=== PATIENT | female | born 1985 | race Two or more races ===

== ENCOUNTER 2018-03-13 09:27 | Emergency (ER) | payer SELFPAY ==
[2018-03-13 09:48] VITALS: TEMP 98.1; BMI 42.5
[2018-03-13] MEDS ORDERED: SODIUM CHLORIDE 1,000 ML IV STA (10:47)
[2018-03-13] MEDS ORDERED: ONDANSETRON 4 MG/2 ML VIAL IVPUSH ONE (10:47)
[2018-03-13] MEDS ORDERED: PANTOPRAZOLE SODIUM 40 MG in SODIUM CHLORIDE 100 ML IVPB ONE (10:47)
[2018-03-13] MEDS ORDERED: PANTOPRAZOLE SODIUM 40 MG/100 ML BAG IVPB ONE (10:50)
[2018-03-13] MEDS ORDERED: ONDANSETRON 4 MG/2 ML VIAL ONE (10:50)
[2018-03-13 11:18] LABS: BASO % 0.2 % (0-2.0); EOS % 0.7 % (0-4.5); HEMATOCRIT 40.4 % (32.4-45.2); LYMPH % 17.5 % (8-40); MCH 28.7 pg (25.7-33.7); MCHC 34.6 g/dl (32.0-36.0); MEAN CELL VOLUME 82.9 fl (80-96); MEAN PLT VOLUME 7.9 fl (7.5-11.1); MONO % 8.8 % (3.8-10.2); NEUT % 72.8 % (42.8-82.8); PLATELET COUNT 337 K/MM3 (134-434); RBC 4.87 M/mm3 (3.60-5.2); RDW 13.6 % (11.6-15.6); WHITE BLOOD COUNT 8.3 K/mm3 (4.0-10.0)
[2018-03-13 11:53] LABS: ALBUMIN 3.8 g/dl (3.4-5.0); ALK PHOS 101 U/L (45-117); ANION GAP 10 MMOL/L (8-16); BILIRUBIN,TOTAL 0.8 mg/dL (0.2-1); BLOOD UREA NITROGEN 9 mg/dL (7-18); CALCIUM 8.7 mg/dL (8.5-10.1); CHLORIDE 104 mmol/L (98-107); CO2 24 mmol/L (21-32); CREATININE 0.7 mg/dL (0.55-1.3); GLUCOSE,RANDOM 83 mg/dL (74-106); LIPASE 55 U/L (73-393); POTASSIUM 3.6 mmol/L (3.5-5.1); SGOT/AST 17 U/L (15-37); SGPT/ALT 24 U/L (13-61); SODIUM 138 mmol/L (136-145)
--- NOTE | 2018-03-13 12:03 | PDOC ---
History of Present Illness - General Chief Complaint: Nausea/Vomiting Stated Complaint: VOMITING/DIARRHEA Time Seen by Provider: 03/13/18 10:40 History Source: Patient Exam Limitations: No Limitations - History of Present Illness Travel History: No Initial Comments: 03/13/18 10:49 32-year-old female with no past medical history presents to ED with complaints of upper abdominal cramping associated nausea vomiting and diarrhea. Patient states ate a bologna sandwich 2 nights ago and yesterday morning woke up with the pain. Patient denies recent sick contacts recent travel, recent illness. Patient states history of GERD. patient denies urinary complaints, bowel complaints prior to onset, or irregular menses. 03/13/18 12:03 Timing/Duration: reports: constant Quality: reports: mild, cramping Abdominal Pain Onset Location: reports: epigastric Pain Radiation: reports: no radiation Activities at Onset: reports: none Aggravating Factors: improves with: None Alleviating Factors: improves with: None Past History - Travel Traveled outside of the country in the last 30 days: No - Past Medical History Allergies/Adverse Reactions: Allergies Allergy/AdvReac Type Severity Reaction Status Date / Time No Known Allergies Allergy Verified 03/13/18 09:48 Home Medications: Ambulatory Orders Ondansetron HCl [Zofran] 4 mg PO TID PRN #12 tablet 03/13/18 Anemia: No Asthma: No Cancer: No Cardiac Disorders: No CVA: No COPD: No CHF: No Dementia: No Diabetes: No GI Disorders: Yes (GERD) Disorders: No HTN: No Hypercholesterolemia: No Liver Disease: Yes (hep c) Seizures: No Thyroid Disease: No - Surgical History Abdominal Surgery: Yes Appendectomy: No Cardiac Surgery: No Cholecystectomy: No Lung Surgery: No Neurologic Surgery: No Orthopedic Surgery: No - Immunization History Immunization Up to Date: Yes - Suicide/Smoking/Psychosocial Hx Smoking Status: No Smoking History: Never smoked Have you smoked in the past 12 months: No Number of Cigarettes Smoked Daily: 0 Information on smoking cessation initiated: No Hx Alcohol Use: No Drug/Substance Use Hx: No Substance Use Type: None Hx Substance Use Treatment: No Patient Lives Alone: No Abd/GI Specific PMHX - Complaint Specific PMHX GERD: Yes Hepatitis: Yes Review of Systems - Review of Systems Able to Perform ROS?: Yes Constitutional: No: Symptoms Reported HEENTM: No: Symptoms Reported Respiratory: No: Symptoms reported Cardiac (ROS): No: Symptoms Reported ABD/GI: Yes: Diarrhea, Nausea, Vomiting, Abdominal cramping : No: Symptoms Reported Musculoskeletal: No: Symptoms Reported Integumentary: No: Symptoms Reported Neurological: No: Symptoms reported *Physical Exam - Vital Signs Last Vital Signs Temp Pulse Resp BP Pulse Ox 98.1 F 79 18 107/69 100 03/13/18 09:45 03/13/18 09:45 03/13/18 09:45 03/13/18 09:45 03/13/18 09:45 - Physical Exam General Appearance: Yes: Nourished, Appropriately Dressed. No: Apparent Distress HEENT: positive: Pharynx Normal Neck: positive: Normal Thyroid, Supple Respiratory/Chest: positive: Lungs Clear, Normal Breath Sounds. negative: Respiratory Distress, Accessory Muscle Use Cardiovascular: positive: Regular Rhythm, Regular Rate. negative: Murmur Gastrointestinal/Abdominal: positive: Normal Bowel Sounds, Soft, Tenderness ( Epigastric and right epigastric area). negative: Distended, Hepatomegaly Musculoskeletal: negative: CVA Tenderness Extremity: negative: Pedal Edema Integumentary: positive: Normal Color, Warm, Moist Neurologic: positive: Motor Strength 5/5 (ambulatory) Moderate Sedation - Procedure Monitoring Vital Signs: Procedure Monitoring Vital Signs Temperature 98.1 F 03/13/18 09:45 Pulse Rate 79 03/13/18 09:45 Respiratory Rate 18 03/13/18 09:45 Blood Pressure 107/69 03/13/18 09:45 O2 Sat by Pulse Oximetry (%) 100 03/13/18 09:45 ED Treatment Course - LABORATORY CBC & Chemistry Diagram: 03/13/18 11:05 03/13/18 11:05 - ADDITIONAL ORDERS Additional order review: 03/13/18 11:05 RBC 4.87 MCV 82.9 MCHC 34.6 RDW 13.6 MPV 7.9 Neutrophils % 72.8 D Lymphocytes % 17.5 D Monocytes % 8.8 Eosinophils % 0.7 Basophils % 0.2 - Medications Given in the ED: ED Medications Discontinued Medications Generic Name Dose Route Start Last Admin Trade Name Freq PRN Reason Stop Dose Admin Pantoprazole Sodium 40 mg/ 100 mls @ 200 mls/hr 03/13/18 10:47 03/13/18 11:06 Sodium Chloride IVPB 03/13/18 11:16 200 mls/hr ONCE ONE Administration Sodium Chloride 1,000 mls @ 1,000 mls/hr 03/13/18 10:47 03/13/18 11:06 Normal Saline - IV 03/13/18 11:46 1,000 mls/hr ASDIR STA Administration Ondansetron HCl 4 mg 03/13/18 10:47 03/13/18 11:06 Zofran Injection IVPUSH 03/13/18 10:48 4 mg ONCE ONE Administration Medical Decision Making - Medical Decision Making 03/13/18 11:05 Chief complaint: Upper abdominal cramping associated nausea vomiting diarrhea. Patient denies fever bloody stool or urinary complaints Exam: Mild epigastric tenderness vital stable no active vomiting Plan: Labs, urine and urine , IV fluids , Protonix and antiemetics 03/13/18 12:07 Laboratory Tests 03/13/18 03/13/18 11:05 11:05 WBC 8.3 Hgb 14.0 Hct 40.4 Absolute Neuts (auto) 6.0 Neutrophils % 72.8 D Lymphocytes % 17.5 D Sodium 138 Potassium 3.6 Chloride 104 Carbon Dioxide 24 BUN 9 Creatinine 0.7 Random Glucose 83 Total Bilirubin 0.8 AST 17 ALT 24 Alkaline Phosphatase 101 Total Protein 8.0 Albumin 3.8 Lipase 55 L Awaiting urine. Patient states symptoms have resolved. 03/13/18 13:32 Laboratory Tests 03/13/18 12:00 Urine Ketones Trace H Urine Blood 1+ H Urine Nitrite Negative Urine Bilirubin Negative Urine Urobilinogen 4.0 e.u/dl H Ur Leukocyte Esterase Negative Urine WBC (Auto) 3 Urine RBC (Auto) 2 Patient having crackers and juice. We will discharge patient home with Zofran. 03/13/18 14:05 *DC/Admit/Observation/Transfer Diagnosis at time of Disposition: Nausea vomiting and diarrhea - Discharge Dispostion Disposition: HOME Condition at time of disposition: Improved - Prescriptions Prescriptions: Ondansetron HCl [Zofran] 4 mg PO TID PRN #12 tablet PRN Reason: Nausea And/Or Vomiting - Referrals Referrals: Francy Anderson FNP [Primary Care Provider] - - Patient Instructions Printed Discharge Instructions: DI for Vomiting -- Adult Additional Instructions: follow bland diet for the next few days and advance as tolerated. Please drink plenty of fluids and rest. Return to the emergency room if his symptoms worsen despite taking Zofran and following the above recommendations. - Post Discharge Activity
[2018-03-13 12:25] LABS: HCG,QUALITATIVE URINE Negative
[2018-03-13 12:38] LABS: URINE APPEARANCE SLCLOUDY; URINE BILIRUBIN NEGATIVE (<2.0 mg/dL); URINE COLOR AMBER; URINE GLUCOSE (UA) NEGATIVE (NEGATIVE); URINE KETONE TRACE (NEGATIVE); URINE LEUK ESTERASE NEGATIVE (NEGATIVE); URINE NITRITE NEGATIVE (NEGATIVE); URINE PROTEIN NEGATIVE (NEGATIVE); URINE UROBILINOGEN 4.0 E.U/dl mg/dL (0.2-1.0)
[2018-03-13 12:48] LABS: EPI CELLS MODERATE /HPF (FEW); URINE BACTERIA RARE /hpf (NONE SEEN); URINE MUCUS MODERATE
[2018-03-13 14:16] VITALS: BP 110/72; PULSE 69
== END 2018-03-13 14:25 | disposition home or self-care (01) ==
LOC: JER 09:27
PROC: 3E033GC Introduction of Other Therapeutic Substance into Peripheral Vein, Percutaneous Approach (ICD-10-PCS; principal; 2018-03-13)
PROC: 3E033GC Introduction of Other Therapeutic Substance into Peripheral Vein, Percutaneous Approach (ICD-10-PCS; 2018-03-13)
DX: R11.2 Nausea with vomiting, unspecified (principal); R19.7 Diarrhea, unspecified
CPT/HCPCS: 36415; 80053; 81003; 81015; 83690; 84703; 85025; 87086; 99283-25; J7030

== ENCOUNTER 2018-07-01 11:30 | Emergency (ER) | payer SELFPAY ==
[2018-07-01 11:44] VITALS: BP 122/69; PULSE 81; TEMP 97.8; BMI 46.5
--- NOTE | 2018-07-01 12:51 | PDOC ---
History of Present Illness - General Chief Complaint: Chest Pain Stated Complaint: S.O.B Time Seen by Provider: 07/01/18 12:51 - History of Present Illness Initial Comments: 07/01/18 13:13 33f with no pmh presents to the ed with 3 weeks of nasal congestion, worse when she goes outside. Describes difficulty passing air throught her nose and some chest pressure, difficulty taking a full breath. She denies coughing, sneezing, sore throat fever or chills. Has been wanting to see a ENT but didn't because she doesn't currently have an insurance. Past History - Past Medical History Allergies/Adverse Reactions: Allergies Allergy/AdvReac Type Severity Reaction Status Date / Time No Known Allergies Allergy Verified 07/01/18 11:41 Home Medications: Ambulatory Orders Ondansetron HCl [Zofran] 4 mg PO TID PRN #12 tablet 03/13/18 Fluticasone Propionate [Flonase Allergy Relief] 15.8 ml NS DAILY 30 Days #1 spray.susp 07/01/18 Oxymetazoline HCl [Afrin] 1 spray NS PRN PRN 3 Days #1 bandage 07/01/18 Anemia: No Asthma: No Cancer: No Cardiac Disorders: No CVA: No COPD: No CHF: No Dementia: No Diabetes: No GI Disorders: Yes (GERD) Disorders: No HTN: No Hypercholesterolemia: No Liver Disease: Yes (hep c) Seizures: No Thyroid Disease: No - Surgical History Abdominal Surgery: Yes Appendectomy: No Cardiac Surgery: No Cholecystectomy: No Lung Surgery: No Neurologic Surgery: No Orthopedic Surgery: No - Immunization History Immunization Up to Date: Yes - Suicide/Smoking/Psychosocial Hx Smoking Status: No Smoking History: Never smoked Have you smoked in the past 12 months: No Number of Cigarettes Smoked Daily: 0 Information on smoking cessation initiated: No Hx Alcohol Use: No Drug/Substance Use Hx: No Substance Use Type: None Hx Substance Use Treatment: No Cardiac Specific PMH - Complaint Specific PMHX GERD: Yes Pacemaker: No Review of Systems - Review of Systems Able to Perform ROS?: Yes Is the patient limited Bhutanese proficient: No Constitutional: No: Symptoms Reported HEENTM: Yes: See HPI Respiratory: Yes: See HPI Cardiac (ROS): No: Symptoms Reported ABD/GI: No: Symptoms Reported : No: Symptoms Reported Musculoskeletal: No: Symptoms Reported Integumentary: No: Symptoms Reported All Other Systems: Reviewed and Negative *Physical Exam - Vital Signs Last Vital Signs Temp Pulse Resp BP Pulse Ox 97.8 F 81 16 122/69 99 07/01/18 11:40 07/01/18 11:40 07/01/18 11:40 07/01/18 11:40 07/01/18 11:40 - Physical Exam General Appearance: Yes: Nourished, Appropriately Dressed. No: Apparent Distress HEENT: positive: EOMI, MOLLY. negative: Normal ENT Inspection (Swollen nasal sinuses and turbinates. ) Respiratory/Chest: positive: Lungs Clear, Normal Breath Sounds. negative: Chest Tender, Respiratory Distress Cardiovascular: positive: Regular Rhythm, Regular Rate, S1, S2 Vascular Pulses: Femoral (R): 0 Neurologic: positive: Fully Oriented, Alert, Normal Mood/Affect, Normal Response , Motor Strength 5/5 Medical Decision Making - Medical Decision Making 07/01/18 13:19 This is likely nasal congestion s/p seasonal allergies Low suspicion for pneumonia or caridac etiology. EKG: sinus rhythm with sinus arrhythmia. Patient is afebrile and has clear lung sounds with abnormal intranasal findings. Will send home with medicine clinic referal and afrin + flonase. *DC/Admit/Observation/Transfer Diagnosis at time of Disposition: Seasonal allergic rhinitis - Discharge Dispostion Disposition: HOME Condition at time of disposition: Improved Decision to Admit order: No - Prescriptions Prescriptions: Fluticasone Propionate [Flonase Allergy Relief] 15.8 ml NS DAILY 30 Days #1 spray.susp Oxymetazoline HCl [Afrin] 1 spray NS PRN PRN 3 Days #1 bandage PRN Reason: Nasal Congestion - Referrals Referrals: 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 3 days of Afrin and 1 month of Flonase. Come back to the emergency department for any new, worsening or concerning symptom. - Post Discharge Activity Forms/Work/School Notes: Back to Work
--- NOTE | 2018-07-01 17:18 | PDOC ---
Documentation entered by Leana Gotti SCRIBE, acting as scribe for Eh Reyna MD. Eh Reyna MD: This documentation has been prepared by the Ana María wallis Nirvannie, SCRIBE, under my direction and personally reviewed by me in its entirety. I confirm that the documentation accurately reflects all work, treatment, procedures, and medical decision making performed by me. Attending Attestation - Resident Resident Name: Raymond East - ED Attending Attestation I have performed the following: I have examined & evaluated the patient, The case was reviewed & discussed with the resident, I agree w/resident's findings & plan - HPI HPI: 07/01/18 13:21 CC: Nasal congestion HPI: The patient is a 33 year old female, with no significant past medical history, who presents to the emergency department with, nasal congestion with associated difficulty taking full inspirations secondary to congestion. She endorses going to an ENT, however, she was unable to get further treatment secondary to insurance issues. She denies any dyspnea upon exertion, chest pain, or palpitations. She denies recent fevers, chills, headache or dizziness. She denies recent nausea, vomit, diarrhea or constipation. She denies recent dysuria, frequency, urgency or hematuria. Allergies: NKA Past surgical history: None reported. - Physicial Exam PE: 07/01/18 13:21 Vitals: Triage vital signs reviewed General Appearance: No acute distress, well nourished, well developed Head: Atraumatic Eyes: Pupils equal reactive round, extraocular movement intact Ears: TM's normal bilaterally Nose: Nares patent bilaterally; + nasal congestion Throat: Posterior oropharynx without erythema, mucous membranes moist Neck: Supple; No nuchal rigidity Chest Wall: Nontender Cardiac: Regular rate and rhythm, no murmurs, no rubs, no gallops Lungs: Clear to auscultation bilateral, good air movement bilaterally Abdomen: Soft, nondistended, normal bowel sounds, nontender to palpation Genitourinary: Rectal: Exam deferred Extremities: Full range of motion to all extremities, no cyanosis, clubbing, or edema Skin: Warm and dry, no rashes or lesions, no rash, no petechiae Neuro: AOX3; Cranial Nerves 2-12 grossly intact, Strength intact to all extremities, Sensation intact to all extremities, gait normal Psych: Normal mood, normal affect - Medical Decision Making 07/01/18 13:22 33 year old female, with no significant past medical history, who presents to the emergency department with, nasal congestion with associated difficulty taking full inspirations secondary to congestion. Plan is: PCP follow up Prescription for Flonase
--- NOTE | 2018-07-02 14:59 | EKG ---
Test Reason : Blood Pressure : / mmHG Vent. Rate : 072 BPM Atrial Rate : 072 BPM P-R Int : 132 ms QRS Dur : 076 ms QT Int : 384 ms P-R-T Axes : 032 065 018 degrees QTc Int : 420 ms NORMAL SINUS RHYTHM WITH SINUS ARRHYTHMIA NORMAL ECG WHEN COMPARED WITH ECG OF 22-JUL-2012 13:44, NO SIGNIFICANT CHANGE WAS FOUND Confirmed by MD WALE, IAN ([id number]) on 07/02/2018 2:59:13 PM Referred By: Confirmed By:IAN ECHEVARRIA MD
== END 2018-07-01 13:35 | disposition home or self-care (01) ==
LOC: JER 11:30
DX: J30.2 Other seasonal allergic rhinitis (principal); K21.9 Gastro-esophageal reflux disease without esophagitis
CPT/HCPCS: 93005; 93010; 99281-25

== ENCOUNTER 2018-07-07 08:22 | Emergency (ER) | payer SELFPAY ==
[2018-07-07 08:29] VITALS: BP 112/79; PULSE 75; TEMP 97.7; BMI 45.1
--- NOTE | 2018-07-07 08:48 | PDOC ---
History of Present Illness - General Chief Complaint: Shortness of Breath Stated Complaint: SOB / CHEST PAIN Time Seen by Provider: 07/07/18 08:33 History Source: Patient - History of Present Illness Timing/Duration: reports: other Past History - Past Medical History Allergies/Adverse Reactions: Allergies Allergy/AdvReac Type Severity Reaction Status Date / Time No Known Allergies Allergy Verified 07/07/18 08:27 Home Medications: Ambulatory Orders Ondansetron HCl [Zofran] 4 mg PO TID PRN #12 tablet 03/13/18 Fluticasone Propionate [Flonase Allergy Relief] 15.8 ml NS DAILY 30 Days #1 spray.susp 07/01/18 Oxymetazoline HCl [Afrin] 1 spray NS PRN PRN 3 Days #1 bandage 07/01/18 Anemia: No Asthma: No Cancer: No Cardiac Disorders: No CVA: No COPD: No CHF: No Dementia: No Diabetes: No GI Disorders: Yes (GERD) Disorders: No HTN: No Hypercholesterolemia: No Liver Disease: Yes (hep c) Seizures: No Thyroid Disease: No - Surgical History Abdominal Surgery: Yes Appendectomy: No Cardiac Surgery: No Cholecystectomy: No Lung Surgery: No Neurologic Surgery: No Orthopedic Surgery: No - Immunization History Immunization Up to Date: Yes - Suicide/Smoking/Psychosocial Hx Smoking Status: No Smoking History: Never smoked Have you smoked in the past 12 months: No Number of Cigarettes Smoked Daily: 0 Hx Alcohol Use: No Drug/Substance Use Hx: No Substance Use Type: None Hx Substance Use Treatment: No Review of Systems - Review of Systems Constitutional: No: Chills, Fever HEENTM: Yes: Nose Congestion Respiratory: Yes: Shortness of Breath. No: Cough Cardiac (ROS): Yes: Chest Pain. No: Lightheadedness, Palpitations, Syncope ABD/GI: No: Nausea, Vomiting *Physical Exam - Vital Signs Last Vital Signs Temp Pulse Resp BP Pulse Ox 97.7 F 75 18 112/79 99 07/07/18 08:24 07/07/18 08:24 07/07/18 08:24 07/07/18 08:24 07/07/18 08:24 - Physical Exam General Appearance: Yes: Appropriately Dressed. No: Apparent Distress HEENT: positive: Normal ENT Inspection, Normal Voice, TMs Normal, Pharynx Normal. negative: Scleral Icterus (R), Scleral Icterus (L) Neck: positive: Supple Respiratory/Chest: positive: Lungs Clear, Normal Breath Sounds. negative: Respiratory Distress Cardiovascular: positive: Regular Rate, S1, S2 Gastrointestinal/Abdominal: positive: Soft. negative: Tender Integumentary: positive: Dry, Warm Neurologic: positive: Fully Oriented, Alert, Normal Mood/Affect ED Treatment Course - LABORATORY CBC & Chemistry Diagram: 07/07/18 08:52 07/07/18 08:52 - RADIOLOGY Radiology Studies Ordered: Category Date Time Status CHEST PA & LAT [RAD] Stat Radiology 07/07/18 08:47 Ordered Medical Decision Making - Medical Decision Making 07/07/18 08:48 33-year-old morbidly obese female, no past medical history, here with complaint of substernal, non-radiating chest pressure and difficulty taking a full breath , intermittently x several weeks. Also complaining of nasal congestion. No palpitations, cough, fever or chills. Patient was seen in ED last week for same and had normal EKG and diagnosed with possible seasonal allergies. Currently on Flonase, Afrin, but continues to complain of symptoms. Patient states she's also been seen by her PMD with no clear diagnosis. No obvious risk factors for DVT, PE and no significant family history See exam Persistent chest pressure/sob x several weeks of unclear etiology Normal EKG last week in ED Evaluated by PMD w/ no clear dx Stable here w/ clear chest/lungs Unlikely ACS, PERCs out, unlikely infxn, ?anxiety component -will get basic labs and CXR today 07/07/18 10:13 Labs and CXR negative. Pt remains stable here in NAD. Will dc to f/u with PMD. *DC/Admit/Observation/Transfer Diagnosis at time of Disposition: Chest pressure - Discharge Dispostion Disposition: HOME Condition at time of disposition: Good - Referrals - Patient Instructions Additional Instructions: The cause of your symptoms are unclear at this time as your labs and CXR were normal Please continue to follow with your PMD - Post Discharge Activity
[2018-07-07 09:31] LABS: BASO % 0.5 % (0-2.0); EOS % 0.8 % (0-4.5); HEMATOCRIT 38.6 % (32.4-45.2); HEMOGLOBIN 13.1 GM/dL (10.7-15.3); LYMPH % 28.7 % (8-40); MCHC 33.9 g/dl (32.0-36.0); MEAN CELL VOLUME 82.5 fl (80-96); MONO % 5.4 % (3.8-10.2); NEUT % 64.6 % (42.8-82.8); PLATELET COUNT 373 K/MM3 (134-434); RBC 4.68 M/mm3 (3.60-5.2); RDW 13.7 % (11.6-15.6); WHITE BLOOD COUNT 8.8 K/mm3 (4.0-10.0)
[2018-07-07 09:40] LABS: ALBUMIN 3.5 g/dl (3.4-5.0); ALK PHOS 84 U/L (45-117); ANION GAP 8 MMOL/L (8-16); BILIRUBIN,TOTAL 0.5 mg/dL (0.2-1); BLOOD UREA NITROGEN 11 mg/dL (7-18); CALCIUM 8.9 mg/dL (8.5-10.1); CHLORIDE 110 mmol/L (98-107); CO2 19 mmol/L (21-32); CREATININE 0.7 mg/dL (0.55-1.3); GLUCOSE,RANDOM 83 mg/dL (74-106); POTASSIUM 3.9 mmol/L (3.5-5.1); SGOT/AST 10 U/L (15-37); SGPT/ALT 16 U/L (13-61); SODIUM 137 mmol/L (136-145); TOT PROT 7.7 g/dl (6.4-8.2)
== END 2018-07-07 10:21 | disposition home or self-care (01) ==
LOC: JER 08:22 → JERFT 08:22
DX: R07.9 Chest pain, unspecified (principal); K21.9 Gastro-esophageal reflux disease without esophagitis; B18.2 Chronic viral hepatitis C
CPT/HCPCS: 36415; 71046-TC-FY; 80053; 82550; 84484; 84703; 85025; 99281-25

== ENCOUNTER 2018-12-20 16:03 | Emergency (ER) | payer OTHER ==
[2018-12-20 16:09] VITALS: BP 117/87; PULSE 92; TEMP 97.7; BMI 46.3
--- NOTE | 2018-12-20 16:09 | PDOC ---
Rapid Medical Evaluation Time Seen by Provider: 12/20/18 16:07 Medical Evaluation: Allergies Allergy/AdvReac Type Severity Reaction Status Date / Time No Known Allergies Allergy Verified 07/07/18 08:27 12/20/18 16:07 I have performed a brief in-person evaluation of this patient. The patient presents with a chief complaint of: 2-3 days of cold, cough with yellow phlegm, nasal congestion, no fever/chills, no CP The patient will proceed to the ED for further evaluation. Discharge Disposition - Diagnosis Upper respiratory infection - Referrals - Patient Instructions - Post Discharge Activity
[2018-12-20] MEDS ORDERED: ALBUTEROL SO4 2.5/IPRATROPIUM 0.5 INH SOL 3 ML VIAL.NEB. NEB ONE ×2 (16:42→16:43)
[2018-12-20] MEDS ORDERED: predniSONE 20 MG TABLET (UD) ONE (16:43)
[2018-12-20] MEDS ORDERED: predniSONE 20 MG TABLET (UD) PO ONE (16:43)
--- NOTE | 2018-12-20 16:49 | PDOC ---
History of Present Illness - General Chief Complaint: Respiratory Stated Complaint: COLD SYX Time Seen by Provider: 12/20/18 16:07 History Source: Patient Exam Limitations: No Limitations - History of Present Illness Initial Comments: 12/20/18 16:43 Patient came in with complaints of persistent moist cough, runny nose and congestion for the past 3 days. States is used [id number] medications at home remedies with minimal resolve. Is this a multiple visit Asthma Patient?: No Timing/Duration: reports: just prior to arrival Severity: reports: mild, moderate Associated Symptoms: reports: chest pain/soreness, cough, earache, facial pain, nasal congestion, nasal drainage, sore throat Past History - Travel Traveled outside of the country in the last 30 days: No Close contact w/someone who was outside of country & ill: No - Past Medical History Allergies/Adverse Reactions: Allergies Allergy/AdvReac Type Severity Reaction Status Date / Time No Known Allergies Allergy Verified 12/20/18 16:09 Home Medications: Ambulatory Orders Ondansetron HCl [Zofran] 4 mg PO TID PRN #12 tablet 03/13/18 Fluticasone Propionate [Flonase Allergy Relief] 15.8 ml NS DAILY 30 Days #1 spray.susp 07/01/18 Oxymetazoline HCl [Afrin] 1 spray NS PRN PRN 3 Days #1 bandage 07/01/18 Albuterol Sulfate Inhaler - [Ventolin HFA Inhaler -] 1 - 2 inh PO Q4H #1 inhaler 12/20/18 predniSONE [Deltasone -] 20 mg PO BID #8 tablet 12/20/18 Anemia: No Asthma: No Cancer: No Cardiac Disorders: No CVA: No COPD: No CHF: No Dementia: No Diabetes: No GI Disorders: Yes (GERD) Disorders: No HTN: No Hypercholesterolemia: No Liver Disease: Yes (hep c) Seizures: No Thyroid Disease: No - Surgical History Abdominal Surgery: Yes Appendectomy: No Cardiac Surgery: No Cholecystectomy: No Lung Surgery: No Neurologic Surgery: No Orthopedic Surgery: No - Immunization History Immunization Up to Date: Yes - Psycho Social/Smoking Cessation Hx Smoking Status: No Smoking History: Never smoked Have you smoked in the past 12 months: No Number of Cigarettes Smoked Daily: 0 Hx Alcohol Use: No Drug/Substance Use Hx: No Substance Use Type: None Hx Substance Use Treatment: No *Physical Exam - Vital Signs Last Vital Signs Temp Pulse Resp BP Pulse Ox 97.7 F 92 H 16 117/87 98 12/20/18 16:04 12/20/18 16:04 12/20/18 16:04 12/20/18 16:04 12/20/18 16:04 - Physical Exam General Appearance: Yes: Nourished, Appropriately Dressed, Apparent Distress, Mild Distress, Moderate Distress HEENT: positive: MOLLY, Normal ENT Inspection, TMs Normal (Congested but landmarks easily visualized), Pharyngeal Erythema, Nasal Congestion, Rhinorrhea Neck: positive: Supple, Lymphadenopathy (R), Lymphadenopathy (L) Respiratory/Chest: positive: Normal Breath Sounds, Wheezing (Some faint expiratory wheezing bilaterally, but some clearing with cough.). negative: Chest Tender, Lungs Clear Gastrointestinal/Abdominal: positive: Soft. negative: Tender Musculoskeletal: positive: Normal Inspection. negative: Vertebral Tenderness Extremity: positive: Normal Capillary Refill, Normal Inspection, Normal Range of Motion Integumentary: positive: Normal Color, Dry, Warm, Pale Neurologic: positive: certification engineer II-XII NML intact, Fully Oriented, Alert, Normal Mood/ Affect, Normal Response, Motor Strength 5/5 ED Progress Note - Progress Note Progress Note: 12/20/18 16:46 URI, breath sounds much improved, better evaluation after DuoNeb and prednisone. Patient states feels much better 12/20/18 17:41 Discharge - Discharge Information Problems reviewed: Yes Clinical Impression/Diagnosis: Upper respiratory infection Qualifiers: URI type: unspecified URI Qualified Code(s): J06.9 - Acute upper respiratory infection, unspecified Condition: Stable Disposition: HOME - Admission No - Additional Discharge Information Prescriptions: Albuterol Sulfate Inhaler - [Ventolin HFA Inhaler -] 1 - 2 inh PO Q4H #1 inhaler predniSONE [Deltasone -] 20 mg PO BID #8 tablet - Follow up/Referral Referrals: Bela Roblero MD [Primary Care Provider] - - Patient Discharge Instructions Patient Printed Discharge Instructions: DI for Viral Upper Respiratory Infection -- Adult Additional Instructions: Rest, drink lots of fluids: Teas, water, soups, Pedialyte Saltwater gargles Steamy showers/seem to face break up mucus Avoid contact with others until fevers and cough resolved Lots of handwashing and good hygiene Continue [id number] medications for symptomatic relief Tylenol or Motrin for fever and pain Continue albuterol nebulizers every 4-6 hours for the next 2 days then as needed for continued cough Prednisone as directed until completed Followup with private physician in one to 2 days Return to emergency department / pediatric hospital for worsened symptoms, fevers, dehydration - Post Discharge Activity Work/Back to School Note: Back to Work
== END 2018-12-20 17:09 | disposition home or self-care (01) ==
LOC: JERFT 16:03
PROC: 3E0F7GC Introduction of Other Therapeutic Substance into Respiratory Tract, Via Natural or Artificial Opening (ICD-10-PCS; principal; 2018-12-20)
DX: J06.9 Acute upper respiratory infection, unspecified (principal); K21.9 Gastro-esophageal reflux disease without esophagitis; B19.20 Unspecified viral hepatitis C without hepatic coma
CPT/HCPCS: 94640; 99281-25

== ENCOUNTER 2019-01-23 07:28 | Emergency (ER) | payer OTHER ==
--- NOTE | 2019-01-23 07:40 | PDOC ---
History of Present Illness - General Chief Complaint: Vaginal Sxs Stated Complaint: BOIL Time Seen by Provider: 01/23/19 07:39 History Source: Patient Exam Limitations: No Limitations - History of Present Illness Travel History: No Initial Comments: 01/23/19 08:03 Patient is a 33 year old female with no significant PMH who presents with a pimple on her R butt cheek. Pt reports mild itching in the area over the past few days. This morning, she was showering and noticed a small bump on her R inner butt cheek, which she accidentally scraped. It started bleeding a small amount. She denies any fevers, chills, dysuria, changes in BM, vaginal discharge or bleeding. Pt is not sexually active, denies hx of STIs. LMP: . 01/23/19 08:07 Past History - Past Medical History Allergies/Adverse Reactions: Allergies Allergy/AdvReac Type Severity Reaction Status Date / Time No Known Allergies Allergy Verified 01/23/19 07:34 Home Medications: Ambulatory Orders Ondansetron HCl [Zofran] 4 mg PO TID PRN #12 tablet 03/13/18 Fluticasone Propionate [Flonase Allergy Relief] 15.8 ml NS DAILY 30 Days #1 spray.susp 07/01/18 Oxymetazoline HCl [Afrin] 1 spray NS PRN PRN 3 Days #1 bandage 07/01/18 Albuterol Sulfate Inhaler - [Ventolin HFA Inhaler -] 1 - 2 inh PO Q4H #1 inhaler 12/20/18 predniSONE [Deltasone -] 20 mg PO BID #8 tablet 12/20/18 Bacitracin - [Bacitracin Topical Ointment -] 1 applic TP BID #1 applic 01/23/19 Anemia: No Asthma: No Cancer: No Cardiac Disorders: No CVA: No COPD: No CHF: No Dementia: No Diabetes: No GI Disorders: Yes (GERD) Disorders: No HTN: No Hypercholesterolemia: No Liver Disease: Yes (hep c) Seizures: No Thyroid Disease: No - Surgical History Abdominal Surgery: Yes Appendectomy: No Cardiac Surgery: No Cholecystectomy: No Lung Surgery: No Neurologic Surgery: No Orthopedic Surgery: No - Immunization History Immunization Up to Date: Yes - Psycho Social/Smoking Cessation Hx Smoking Status: No Smoking History: Never smoked Have you smoked in the past 12 months: No Number of Cigarettes Smoked Daily: 0 Information on smoking cessation initiated: Yes Hx Alcohol Use: No Drug/Substance Use Hx: No Substance Use Type: None Hx Substance Use Treatment: No Abd/GI Specific PMHX - Complaint Specific PMHX GERD: Yes Hepatitis: Yes Review of Systems - Review of Systems Able to Perform ROS?: Yes Constitutional: No: Symptoms Reported, See HPI, Chills, Diaphoresis, Fever, Loss of Appetite, Malaise, Night Sweats, Weakness, Weight Stable, Unintentional Wgt. Loss, Unexplained wgt Loss, Other HEENTM: No: Symptoms Reported, See HPI, Eye Pain, Blurred Vision, Tearing, Recent change in vision, Double Vision, Cataracts, Ear Pain, Ocular Prothesis, Ear Discharge, Nose Pain, Nose Congestion, Tinnitus, Nose Bleeding, Hearing Loss , Throat Pain, Throat Swelling, Mouth Pain, Dental Problems, Difficulty Swallowing, Mouth Swelling, Other Respiratory: No: Symptoms reported, See HPI, Cough, Orthopnea, Shortness of Breath, SOB with Exertion, SOB at Rest, Stridor, Wheezing, Productive cough, Hemoptysis, Other Cardiac (ROS): No: Symptoms Reported, See HPI, Chest Pain, Edema, Irregular Heart Rate, Lightheadedness, Palpitations, Syncope, Chest Tightness, Other ABD/GI: No: Symptoms Reported, See HPI, Abdominal Distended, Abd. Pain w/ defecation, Blood Streaked Bowels, Constipated, Diarrhea, Difficulty Swallowing , Nausea, Poor Appetite, Poor Fluid Intake, Rectal Bleeding, Vomiting, Indigestion, Abdominal cramping, Tarry Stools, Other Neurological: No: Symptoms reported, See HPI, Headache, Numbness, Paresthesia, Pre-Existing Deficit, Seizure, Tingling, Tremors, Weakness, Unsteady Gait, Ataxia, Dizziness, Other *Physical Exam - Vital Signs Last Vital Signs Temp Pulse Resp BP Pulse Ox 98 F 74 16 118/75 99 01/23/19 07:34 01/23/19 07:34 01/23/19 07:34 01/23/19 07:34 01/23/19 07:34 - Physical Exam General Appearance: Yes: Nourished, Appropriately Dressed HEENT: positive: EOMI, Normal ENT Inspection, Normal Voice, Symmetrical Neck: positive: Trachea midline Respiratory/Chest: positive: Lungs Clear, Normal Breath Sounds. negative: Chest Tender, Respiratory Distress, Accessory Muscle Use, Crackles Cardiovascular: positive: Regular Rhythm, Regular Rate, S1, S2. negative: Edema , JVD, Murmur Vascular Pulses: Dorsalis-Pedis (R): 2+, Doralis-Pedis (L): 2+ Female Pelvic Exam: positive: normal external exam, lesions (0.5cm pimple on R buttocks) Musculoskeletal: positive: Normal Inspection. negative: CVA Tenderness Extremity: positive: Normal Capillary Refill, Normal Inspection, Normal Range of Motion Medical Decision Making - Medical Decision Making 01/23/19 08:21 Pt's symptoms are likely caused from an ingrown hair on her R buttocks. Does not appear infected at this time. She was given instructions to place a warm compress to the area as well as bacitracin ointment BID. She was told to monitor the pimple and return tot he ER if it becomes increasingly red, swollen , painful, or if she experiences any fevers. Discharge - Discharge Information Problems reviewed: Yes Clinical Impression/Diagnosis: Pimples, Ingrown hair Condition: Good Disposition: HOME - Admission No - Additional Discharge Information Prescriptions: Bacitracin - [Bacitracin Topical Ointment -] 1 applic TP BID #1 applic - Follow up/Referral Referrals: Francy Anderson FNP [Primary Care Provider] - - Patient Discharge Instructions Patient Printed Discharge Instructions: DI for Vaginal Itching Additional Instructions: You have a small pimple on your RIGHT butt cheek that was likley caused from an ingrown hair. It does not appear to be infected at this time. >>You should place a warm compress to the area 2-3 times a day and apply Bacitracin cream to the area twice a day. >>Monitor the pimple over the next few days for any changes. If it becomes increasingly red, swollen, or painful, or if you experience any fevers, please return to the ER. You should follow up with your primary care doctor in one week. - Post Discharge Activity
[2019-01-23 07:42] VITALS: BP 118/75; PULSE 74; TEMP 98; BMI 44.8
--- NOTE | 2019-01-23 09:49 | PDOC ---
Attending Attestation - Resident Resident Name: [email or web address] - ED Attending Attestation I have performed the following: I have examined & evaluated the patient, The case was reviewed & discussed with the resident, I agree w/resident's findings & plan, Exceptions are as noted - HPI HPI: 01/23/19 13:37 33 years old with no significant past medical history presents with a pimple to her right butt cheek mild itching small amount of fluid no fever no chills no severe pain - Physicial Exam PE: 01/23/19 13:37 Vitals: Triage Vital signs reviewed General Appearance: No acute distress, well nourished well developed, Cardiac: Regular rate and rhythym, no murmurs, no rubs, no gallops, Lungs: Clear to auscultation bilateral, good air movement bilaterally, Abdomen: Soft, non distended, normal bowel sounds, non tender to palpation Rectal: Small red pustule open, not bleeding or draining likely ingrown hair, no fluctuance, no mass, no surrounding reddness, cellulitis Extremities: Full range of motion to all extremities, no cyanosis, clubbing, or edema Skin: Warm and dry, no rashes or lesions, no rash, no petechiae Psych: Normal mood, normal affect - Medical Decision Making 01/23/19 13:43 Well-appearing no apparent distress small likely ingrown hair which had opened no active draining no surrounding redness conservative management warm compresses bacitracin at this time will return for any progressively worsening symptoms any evidence of infection or for any concerns. Findings, need for follow-up and strict return instructions discussed with patient.
== END 2019-01-23 08:23 | disposition home or self-care (01) ==
LOC: JER 07:28
DX: L73.1 Pseudofolliculitis barbae (principal); R23.8 Other skin changes; B18.2 Chronic viral hepatitis C; K21.9 Gastro-esophageal reflux disease without esophagitis
CPT/HCPCS: 99281-25

== ENCOUNTER 2020-07-08 07:51 | Day surgery (SDC) | payer OTHER ==
[2020-07-08] MEDS ORDERED: FERRIC CARBOXYMALTOSE 750 MG in SODIUM CHLORIDE 250 ML IVPB ONE (14:00)
[2020-07-08 18:37] VITALS: TEMP 97.7
[2020-07-08 18:39] VITALS: BP 126/78; PULSE 80
== END 2020-07-08 15:40 | disposition home or self-care (01) ==
LOC: JONCNONCHE 07:51
PROVIDERS: ATTEND Internal Medicine Hematology & Oncology
PROC: 3E033GC Introduction of Other Therapeutic Substance into Peripheral Vein, Percutaneous Approach (ICD-10-PCS; principal; 2020-07-08)
DX: D50.9 Iron deficiency anemia, unspecified (principal)
CPT/HCPCS: 96365; J1439

== ENCOUNTER 2020-07-15 07:17 | Day surgery (SDC) | payer OTHER ==
[2020-07-15] MEDS ORDERED: FERRIC CARBOXYMALTOSE 750 MG in SODIUM CHLORIDE 250 ML IVPB ONE (13:15)
[2020-07-15 15:01] VITALS: TEMP 97.5
[2020-07-15 15:07] VITALS: BP 110/68; PULSE 81
== END 2020-07-15 14:40 | disposition home or self-care (01) ==
LOC: JONCCHEMO 07:17
PROVIDERS: ATTEND Internal Medicine Hematology & Oncology
PROC: 3E033GC Introduction of Other Therapeutic Substance into Peripheral Vein, Percutaneous Approach (ICD-10-PCS; principal; 2020-07-15)
DX: D50.9 Iron deficiency anemia, unspecified (principal)
CPT/HCPCS: 96365; J1439